=== PATIENT | female | born 1970 | race Caucasian/White ===

== ENCOUNTER → 2016-08-02 | Day surgery (SDC) | payer OTHER ==
[~2016-08-02] MED LIST: BUPIVACAINE HCL PF 0.25% 30 ML VIAL ONE; ENOX40P SQ; ENOX80P SQ; KETOROLAC TROMETHAMINE 30 MG/ML (IVP) VIAL IV PUSH ONE; LACTATED RINGER'S 1000 ML INJ 1,000 ML ONE; MIDAZOLAM HCL 2 MG/2 ML VIAL ONE; ONDANSETRON HCL 4 MG/2 ML VIAL IV PUSH ONE; PROPOFOL 200 MG/20 ML AMP IV ONE; ceFAZolin 2 GM PREMIX 50 ML ONE
--- NOTE | 2016-08-03 11:30 | MP ---
cc: ÁNGEL JUAREZ DPM DATE OF SURGERY: 08/02/2016 PREOPERATIVE DIAGNOSIS Left foot hallux abductovalgus. POSTOPERATIVE DIAGNOSIS Left foot hallux abductovalgus. PROCEDURE PERFORMED Left modified Lapidus bunionectomy. SPECIMEN None. ESTIMATED BLOOD LOSS Less than 30 mL. COMPLICATIONS None. MATERIALS USED X2 cannulated screws Dart-Dire 3.5, and x1 3.0 cannulated screw. These were titanium. COMPLICATIONS None. ANESTHESIA General with local 30 cc of 0.25% Marcaine plain. TOURNIQUET TIME 66 minutes at a setting of 215 mmHg about the patient's left ankle. DISPOSITION Transfer to PACU then discharge home once stable per same-day surgery criteria. PROCEDURE IN DETAIL Under mild sedation the patient was brought into the operating room and placed on the operating table in a supine position. Following the induction of general anesthesia, local anesthesia was obtained about the forefoot utilizing standard block fashion. The patient's left foot was then scrubbed, prepped and draped in the usual aseptic fashion. The foot was elevated and exsanguinated and the previously placed mid ankle tourniquet was inflated at 215 mmHg. An incision was made over the dorsal aspect of first MPJ which was slight curvilinear at the base of the first metatarsal medial cuneiform joint. Sharp and blunt dissection was carried down to the level of the conjoined tendon which was severed freeing up plantar and lateral contractures of the first MPJ. An L-shaped capsulotomy was performed revealing a prominent dorsomedial eminence which was then transected utilizing power instrumentation being careful to maintain the sagittal groove. There were minimal arthritic changes of the first MPJ. A McGlamry elevator was introduced into the first MPJ freeing up plantar and lateral contractures. Sharp and blunt dissection was carried down to the base of the medial cuneiform first metatarsal joint. A biplanar wedge was then performed removing the articular surface, closing down the first and second intermetatarsal angle. This was then fixated utilizing three screws, one from dorsal distal to plantar proximal, this was medial, one from proximal dorsal to distal lateral. A screw was then placed from the medial cortex of the first metatarsal coursing all the way to the lateral cortex of the second metatarsal further stabilizing the syndesmosis. Three views were then taken. There was noted to be stability with absent hallux abductovalgus. A sesamoid axial view was taken intraoperatively and there was noted to be excellent alignment of the sesamoid. The wound was flushed with copious amounts of normal saline. Redundant medial capsule was transected. The capsule and periosteum was closed utilizing Vicryl. Skin was closed utilizing nylon. Upon relieving the tourniquet there was a prompt hyperemic response to all digits with minimal bleeding. A bulky bandage was placed. The patient was transferred from OR to PACU with all vital signs stable. She is in a pneumatic ankle tourniquet. She is heel transfer weight bear. She will start Lovenox within 12 hours after surgery as directed by hematology. IDA Cochran /3:51 PM /11:12 AM
== END | disposition home or self-care (01) ==
LOC: ESDC 13:13
PROVIDERS: ATTEND Podiatrist Foot & Ankle Surgery
DX: M20.12 Hallux valgus (acquired), left foot (principal)
CPT/HCPCS: 01480; 28297; 73630; 76000; C1713; J0690; J1885; J2250; J2405; J3010; J7120